=== PATIENT | male | born 1975 | race Caucasian/White ===

== ENCOUNTER 2023-01-04 08:16 | Outpatient (CLI) | payer MEDICARE | END 2023-01-04 08:17 | disposition home or self-care (01) | LOC: CSHCT 08:16 | PROVIDERS: ATTEND Urology | DX: N20.0 Calculus of kidney (principal); N28.89 Other specified disorders of kidney and ureter; N42.89 Other specified disorders of prostate | CPT/HCPCS: 74176 ==